=== PATIENT | female | born 1960 | race Caucasian/White ===

== ENCOUNTER 2016-10-07 12:06 | Emergency (ER) | payer MEDICAID ==
[2016-10-07 12:19] VITALS: PULSE 72; RESP 16
--- NOTE | 2016-10-07 12:29 | EDPHY ---
H & P Stated Complaint: right wrist pain x 4 days Time Seen by Provider: 10/07/16 12:22 - Personal History LMP (Females 10-55): Post Menopausal Current Tetanus Diphtheria and Acellular Pertussis (TDAP): No - Medical/Surgical History Hx Asthma: No Hx Chronic Respiratory Disease: No Hx Diabetes: No Hx Cardiac Disease: No Hx Renal Disease: No Hx Cirrhosis: No Hx Alcoholism: No Hx HIV/AIDS: No Hx Splenectomy or Spleen Trauma: No Other PMH: csection - Social History Smoking Status: Heavy smoker Constitutional: Initial Vital Signs Heart Rate 72 10/07/16 12:16 Respiratory Rate 16 10/07/16 12:16 Blood Pressure 138/78 H 10/07/16 12:16 O2 Sat (%) 93 10/07/16 12:16 O2 Delivery Mode Room Air Allergies/Adverse Reactions: tetanus toxoid, adsorbed [Tetanus Toxoid,Adsorbed] Allergy (Intermediate, Verified 01/26/09 10:14) Home Medications: Medication Instructions Recorded No Medications [NO [place] 1 e[place] [facility] [place] Doxycycline Hyclate 1 tab PO BID #20 capsule 12/14/12 Ipratropium/Albuterol [Combivent 2 puffs IH Q4 #1 inh 12/14/12 Inhaler] methylPREDNISolone [MEDROL DOSE 4 mg PO AD #1 tab.ds.pk 12/14/12 PACK] Azithromycin [Zithromax tab 250 mg] 250 mg PO DAILY #6 tab 12/20/12 Medical Decision Making ED Course/Re-evaluation: CHIEF COMPLAINT: Right wrist pain HISTORY OF PRESENT ILLNESS: 55-year-old female who 4 days ago was caring a [employer] car part with her right wrist. She had no pain when she was initially caring it but several minutes later she developed pain in her wrist along the thumb side. She denies any cracks or pops or obvious injuries at the time. Her wrist has been bothering her and sore for 4 days she can move it but it is fairly sore when she does move it. The position that hurts the most is when she deviates her thumb laterally. REVIEW OF SYSTEMS: A 10 point review of systems was performed and is negative with the exception of the elements mentioned in the history of present illness. PHYSICAL EXAM: HR, BP, O2 Sat, RR. Temp noted General Appearance: Alert, well hydrated, appropriate, and non-toxic appearing. Head: Atraumatic without scalp tenderness or obvious injury Eyes: Pupils equal, round, reactive to light and accommodation, EOMI, no trauma , no injection. Ears: Clear bilaterally, no perforation, normal landmarks Nose: Atraumatic, no rhinorrhea, clear. Throat: There is no erythema or exudates, no lesions, normal tonsils, mucus membranes moist. Neck: Supple, 2+ carotid upstroke, nontender, no lymphadenopathy. Respiratory: No retractions, no distress, no wheezes, and no accessory muscle use. Lungs are clear to auscultation bilaterally. Cardiovascular: Regular rate and rhythm, no murmurs, rubs, or gallops. Bilateral carotid, radial, dorsalis pedis, and posterior tibial pulses intact. Good capillary refill all extremities. Gastrointestinal: Abdomen is soft, nontender, non-distended, no masses, no rebound, no guarding, no peritoneal signs. Musculoskeletal: Pain near the radial carpal joint but no obvious deformity with reasonable range of motion limited only by pain. Otherwise, Normal active ROM of all extremities, atraumatic. Neurological: Alert, appropriate, and interactive. The patient has normal DTRs and non-focal cranial nerves, motor, sensory, and cerebellar exam. Skin: No rashes, good turgor, no nodules on palpation. Past medical history: Noncontributory Past surgical history: Noncontributory Family history: Noncontributory Social history: Employed, does not abuse tobacco drugs or alcohol DIAGNOSTICS/PROCEDURES/CRITICAL CARE TIME: Study: three views of the right wrist Indication: wrist pain Results: After viewing the images myself on the PACS system. My interpretation of the images is: No acute osseous process. The radiologist interpretation is pending at the time of this dictation. DIFFERENTIAL DIAGNOSIS: Includes but is not limited to: Sprain, strain, avulsion fracture, recorder veins tenosynovitis, carpal tunnel syndrome,[id number] Arthritis MEDICAL DECISION MAKING: This patient has no obvious osseous injury. She most likely has a soft tissue wrist sprain. I have put her in a Velcro thumb spica wrist splint to immobilize her. We will get her followed up with the Hand physician. She will use ibuprofen as needed. Departure - Departure Disposition: Home, Routine, Self-Care Clinical Impression: Right wrist sprain Qualifiers: Encounter type: initial encounter Qualified Code(s): S63.501A - Unspecified sprain of right wrist, initial encounter Condition: Good Instructions: Wrist Sprain (ED) Referrals: NONE *PRIMARY CARE P,. [Primary Care Provider] - As per Instructions Samira Zamora MD [Medical Doctor] - As per Instructions
[2016-10-07 12:59] VITALS: BP 138/72; O2SAT 92
== END 2016-10-07 12:50 | disposition home or self-care (01) ==
LOC: CED 12:06
DX: S63.501A Unspecified sprain of right wrist, initial encounter (principal); F17.200 Nicotine dependence, unspecified, uncomplicated; X58.XXXA Exposure to other specified factors, initial encounter
CPT/HCPCS: 73110-PO; L3807